=== PATIENT | male | born 1955 | race Caucasian/White ===

== ENCOUNTER 2025-02-20 11:24 | Day surgery (SDC) | payer OTHER, SELFPAY ==
[2025-02-20] VITALS (15 sets, daily range): BP systolic 117–148; BP diastolic 68–87; BMI 32.9
[2025-02-20] MEDS: NSS 294 ML IV (12:36)
--- NOTE | 2025-02-20 13:34 | ITS.CL.CATH ---
[employer] Lecturer - Catheterization
Cardiac Catheterization
Procedure Report:
CARDIAC CATHETERIZATION REPORT
Date of Procedure: 02/20/2025
Referring: Bc Cheng D.O.
INDICATION: Increasing fatigue, abnormal stress test, coronary artery calcification.
PROCEDURE:
1. Left heart catheterization
2. Coronary angiography.
A total of 17 minutes of procedural/moderate sedation was utilized. An independent manager of medical was present to assist with and help manage the patient's level of consciousness and physiologic status.
ACCESS:
1. 6 Danish right radial artery using a modified Seldinger technique.
CATHETERS:
1. 5 Danish JR4.
2. 5 Danish JL 3.5.
HEMODYNAMIC DATA
Weight (kg): 98.0
AO (s/d/x, mmHg): 114/75/89
LV (s/x mmHg): 121/13
LEFT VENTRICULOGRAPHY: Not performed.
CORONARY ANGIOGRAPHY
Dominance: Right.
Left Main: Large size, bifurcating vessel. There is no coronary artery disease.
LAD: Normal size vessel giving rise to 2 significant diagonals. There is no coronary artery disease. There is moderate tortuosity.
Ramus: Congenitally absent.
Circumflex: Normal size, nondominant vessel giving rise to 1 obtuse marginal. The origin of the vessel is acutely angled at approximately 140 degrees back towards the aorta.
RCA: Normal size, dominant vessel with a prominent conus. There is no coronary artery disease.
INTERVENTION(S)
None.
Closure Device: Vascular band.
Radiation (mGy): 420.12
DAP (cm2.Gy): 34.2981
Fluoroscopy time (minutes): 2.4
CONCLUSIONS
1. Right dominant circulation with an acute angulation of the nondominant circumflex and no coronary artery disease.
2. Top normal to mildly elevated filling pressures (LVEDP = 13 mmHg at 98.0 kg).
RECOMMENDATIONS:
1. Expectant management after cardiac catheterization via right radial approach.
2. Limited weight bearing on the right wrist for one week.
3. Continue aggressive primary prevention with high-dose, high potency statin given coronary artery calcification. Goal LDL <55.
4. No obvious source for patient's decreased exercise tolerance.
5. Continue to optimize patient risk factors.
Copy to: Bc Cheng D.O., Wong Jorge M.D.
Vadim Locke DO, FACC, FACP
== END 2025-02-20 16:30 | disposition home or self-care (01) ==
LOC: CATH 11:24
PROVIDERS: ATTENDING PHYSICIAN Internal Medicine Cardiovascular Disease; FAMILY PHYSICIAN Internal Medicine; OTHER PHYSICIAN Internal Medicine Cardiovascular Disease
DX: Z13.6 Encounter for screening for cardiovascular disorders (principal); R94.39 Abnormal result of other cardiovascular function study; R53.83 Other fatigue; R94.31 Abnormal electrocardiogram [ECG] [EKG]; I10 Essential (primary) hypertension; E78.5 Hyperlipidemia, unspecified
CPT/HCPCS: 99152; 93005; 93458; C1894; Q9967